=== PATIENT | male | born 1980 | race Caucasian/White ===

== ENCOUNTER 2018-03-09 10:01 | Emergency (ER) | payer SELFPAY ==
[~2018-03-09] VITALS: Ht 177.8 cm; Wt 100.2 kg
[2018-03-09] MEDS ORDERED: LISI5TAB7 PO (10:31)
[2018-03-09] MEDS ORDERED: METF500T5 PO (10:31)
[2018-03-09] MEDS ORDERED: LIDOCAINE-MPF 2%, 2ML ONE (11:18)
[2018-03-09] MEDS ORDERED: MORPHINE SULFATE 4 MG/ML, 1ML ONE (11:18)
[2018-03-09] MEDS ORDERED: LIDOCAINE 1%-EPI 1:100K, 30ML ONE (11:18)
[2018-03-09] MEDS ORDERED: LIDOCAINE 2%, 20ML SQ ONE (11:30)
[2018-03-09] MEDS ORDERED: MORPHINE SULFATE 4 MG/ML, 1ML IV PRN (11:30)
[2018-03-09] MEDS ORDERED: SODIUM CHLORIDE FLUSH 10ML SYR IVF ONE (11:30)
[2018-03-09] MEDS ORDERED: CEFTRIAXONE 1,000 MG in SODIUM CHLORIDE 0.9% 50 ML IVPB ONE (11:30)
[2018-03-09] MEDS ORDERED: CEFTRIAXONE PMX 1GM/50ML 50 ML ONE (11:33)
[2018-03-09 11:35] LABS: BASOPHILS # (AUTO) 0.02 x10^3/uL (0-0.1); BASOPHILS % (AUTO) 0 % (0-1); EOSINOPHILS # (AUTO) 0.08 x10^3/uL (0-0.4); EOSINOPHILS % (AUTO) 1 % (1-7); LYMPHOCYTES # (AUTO) 2.11 x10^3/uL (1-3.4); LYMPHOCYTES % (AUTO) 22 % (22-44); MD NO; MEAN CORPUSCULAR HEMOGLOBIN 27.8 pg (27.5-34.5); MEAN CORPUSCULAR HGB CONC 33.8 g/dL (33.2-36.2); MEAN CORPUSCULAR VOLUME 82.3 fL (81-97); MONOCYTES # (AUTO) 0.53 x10^3/uL (0.2-0.8); MONOCYTES % (AUTO) 6 % (2-9); NEUTROPHILS # (AUTO) 6.88 x10^3/uL (1.8-6.8); NEUTROPHILS % (AUTO) 72 % (42-75); PLATELET COUNT 248 x10^3/uL (130-400); RED BLOOD COUNT 5.68 x10^6/uL (4.38-5.82); RED CELL DISTRIBUTION WIDTH 13.5 % (9.4-14.8)
[2018-03-09 11:46] LABS: ALBUMIN 3.7 g/dL (3.4-5.0); ANION GAP 9 mmol/L (5-15); CALCIUM 8.7 mg/dL (8.5-10.1); CHLORIDE 104 mmol/L (98-107)
[2018-03-09] MEDS ORDERED: OMNIPAQUE 350 MG/ML, 100ML BOTTLE ONE (12:33)
[2018-03-09 13:03] VITALS: BP 124/73
== END 2018-03-09 13:22 | disposition home or self-care (01) ==
LOC: ED 12:00
DX: L02.416 Cutaneous abscess of left lower limb (principal); R51 Headache; R19.7 Diarrhea, unspecified; I10 Essential (primary) hypertension; F17.200 Nicotine dependence, unspecified, uncomplicated; E11.9 Type 2 diabetes mellitus without complications; Z90.89 Acquired absence of other organs
CPT/HCPCS: 10060; 36415; 73701; 80048; 82040; 83605; 85025; 87040; 96365; 96375; 99285; J0696; J3490; Q9967

== ENCOUNTER 2018-09-08 20:11 | Emergency (ER) | payer SELFPAY ==
[~2018-09-08] VITALS: Ht 175.3 cm; Wt 103.7 kg
[~2018-09-08 20:11] MED LIST: LISI5TAB7 PO; METF500T17 PO
--- NOTE | 2018-09-08 20:33 | NUR ---
PT PRESENTED WITH C/O PAIN IN LOWER BACK, LEFT LEG PAIN, PT STATED "DIFFICULTY SWALLWING WITH WHITE PATCHES TO BACK OF TONGUE". PT STATED " I'M OUT OF B/P MEDICATION AND HAVE NOT TAKEN IT FOR 2 DAYS". MONITORS APPLIED, SIDERAILS UP X2, PROVIDED PT WITH GOWN AND WARM BLANKET, FAMILY AT BEDSIDE, CALL LIGHT WITHIN REACH. AWAITING ERP FOR EVAL AND ORDERS
[2018-09-08 20:39] VITALS: BP 156/106
[2018-09-08] MEDS ORDERED: KETOROLAC 30 MG/1 ML IM ONE (21:00)
[2018-09-08] MEDS ORDERED: METHOCARBAMOL 750 MG TABLET PO ONE (21:00)
[2018-09-08 21:03] LABS: MICROSCOPIC NOT IND
[2018-09-08 21:06] LABS: CULTURE INDICATED? NO
[2018-09-08] MEDS ORDERED: KETOROLAC 30 MG/1 ML ONE (21:08)
[2018-09-08] MEDS ORDERED: METHOCARBAMOL 750 MG TABLET ONE (21:08)
--- NOTE | 2018-09-08 21:12 | NUR ---
PT MEDICATED PER MAR
--- NOTE | 2018-09-08 21:49 | NUR ---
TASK RN: DC EDUCATION PROVIDED, PT DEMONSTRATES UNDERSTANDING. PT REQUESTING 'SOMETHING STRONGER THAN IBUPROFEN' FOR PAIN AT HOME. ERP AWARE. PRIMARY RN AWARE.
--- NOTE | 2018-09-08 21:54 | NUR ---
TASK RN: PT AMBULATED STEADILY TO DC WITH RN AND FAMILY. SO TO TRANSPORT PT HOME.
== END 2018-09-08 21:56 | disposition home or self-care (01) ==
LOC: ED 21:50
DX: M54.42 Lumbago with sciatica, left side (principal); I10 Essential (primary) hypertension; E11.9 Type 2 diabetes mellitus without complications; Z72.9 Problem related to lifestyle, unspecified; F17.210 Nicotine dependence, cigarettes, uncomplicated
CPT/HCPCS: 81003; 96372; 99283; J1885

== ENCOUNTER 2018-10-03 09:44 | Emergency (ER) | payer SELFPAY ==
[~2018-10-03] VITALS: Ht 175.3 cm; Wt 101.0 kg
--- NOTE | 2018-10-03 10:26 | NUR ---
PT STATED THAT HE FELT WEAK THIS MORNING SO HE DRANK SU[employer]GY BOOSTER WITH VITAMINS AND STARTED FEELING HOT AND TURNED RED. PT IS ALERT, ORIENTED, WITH NAD. PT IS CONNECTED TO THE MONITOR. CALL LIGHT WITHIN REACH.
--- NOTE | 2018-10-03 11:03 | NUR ---
Pt ambulated to the bathroom with steady gait.
[2018-10-03 11:16] LABS: BASOPHILS # (AUTO) 0.02 x10^3/uL (0-0.1); BASOPHILS % (AUTO) 0 % (0-1); EOSINOPHILS # (AUTO) 0.14 x10^3/uL (0-0.4); EOSINOPHILS % (AUTO) 2 % (1-7); LYMPHOCYTES # (AUTO) 2.44 x10^3/uL (1-3.4); LYMPHOCYTES % (AUTO) 31 % (22-44); MD NO; MEAN CORPUSCULAR HEMOGLOBIN 27.4 pg (27.5-34.5); MEAN CORPUSCULAR HGB CONC 33.2 g/dL (33.2-36.2); MEAN CORPUSCULAR VOLUME 82.6 fL (81-97); MEAN PLATELET VOLUME 8.4 fL (7.4-10.4); MONOCYTES % (AUTO) 6 % (2-9); NEUTROPHILS # (AUTO) 4.76 x10^3/uL (1.8-6.8); NEUTROPHILS % (AUTO) 61 % (42-75); PLATELET COUNT 248 x10^3/uL (130-400); RED BLOOD COUNT 5.89 x10^6/uL (4.38-5.82); RED CELL DISTRIBUTION WIDTH 13.6 % (9.4-14.8)
[2018-10-03 11:19] LABS: ANION GAP 8 mmol/L (5-15); CHLORIDE 101 mmol/L (98-107); CREATININE 0.98 mg/dL (0.7-1.3)
--- NOTE | 2018-10-03 11:23 | NUR ---
Babs gonzales in [facility] - 10/03/18 at 1124 by JEROMY Patient given discharge instructions and they have confirmed that they understand the instructions. Patient ambulatory with steady gait.
[2018-10-03 11:39] VITALS: BP 148/98
--- NOTE | 2018-10-03 11:39 | NUR ---
Patient given discharge instructions and they have confirmed that they understand the instructions. Patient ambulatory with steady gait.
--- NOTE | 2018-10-03 11:54 | NUR ---
Patient given discharge instructions and they have confirmed that they understand the instructions. Patient ambulatory with steady gait.
== END 2018-10-03 11:55 | disposition home or self-care (01) ==
LOC: ED 11:30
DX: R53.1 Weakness (principal); R73.9 Hyperglycemia, unspecified; I10 Essential (primary) hypertension; E11.9 Type 2 diabetes mellitus without complications
CPT/HCPCS: 80048; 82962; 83735; 85025; 99283